=== PATIENT | female | born 1940 | race Caucasian/White ===

== ENCOUNTER 2016-06-08 14:10 | Inpatient (IN) | payer MEDICARE ==
[2016-06-08] VITALS (342 sets, daily range): BP systolic 79–105; BP diastolic 42–58; PULSE 72–74; TEMP 97–97.1; O2SAT 75–100
[~2016-06-08] VITALS: Ht 157.5 cm; Wt 71.1 kg
[2016-06-08] MEDS ORDERED: SYMMETREL100 M1 PO (14:55)
[2016-06-08] MEDS ORDERED: ASPIRIN 81M81 MG/TA2 PO (14:57)
[2016-06-08] MEDS ORDERED: VITAMIN D31000 I1 PO (14:58)
[2016-06-08] MEDS ORDERED: LIPITOR 80MG80 MG PO (14:58)
[2016-06-08] MEDS ORDERED: COLACE 100100 MG/CAP PO (14:59)
[2016-06-08] MEDS ORDERED: CYMBALTA 60MG60 MG PO (14:59)
[2016-06-08] MEDS ORDERED: LOFIBRA160 MG PO (15:00)
[2016-06-08 15:01] LABS: MEAN CELL VOLUME 102 fl (80.0-100.0); MEAN CORPUSCULAR HGB CONC 31 g/dl (33.0-37.0); MEAN PLATELET VOLUME 11.1 fl (7.4-10.4); PLATELET COUNT 374 K/mm3 (130-400); RED BLOOD COUNT 2.15 M/mm3 (4.10-5.30); REDCELL DISTRIBUTION WIDTH-CV 15.7 % (11.5-14.5); WHITE BLOOD COUNT 14.9 K/mm3 (4.8-10.8)
[2016-06-08] MEDS ORDERED: LASIX 20MG TABL20 MG PO (15:01)
[2016-06-08] MEDS ORDERED: LEVEMIR100 U/ML SQ (15:02)
[2016-06-08 15:04] LABS: HEMATOCRIT 21.9 % (37.0-47.0); HEMOGLOBIN 6.7 g/dl (12.5-16.0); MEAN CORPUSCULAR HEMOGLOBIN 31 pg (27.0-31.0)
[2016-06-08 15:05] LABS: ADD PATHOLOGY DIFF REVIEW NO; ADJUSTED CALCIUM 10.4 mg/dL (8.4-10.2); ALBUMIN 3.3 gm/dL (3.5-5.0); BILIRUBIN,TOTAL 0.7 mg/dL (0.0-1.0); CALCIUM 9.8 mg/dL (8.4-10.2); CREATININE, serum 1.68 mg/dL (0.52-1.25); POTASSIUM 4.7 mmol/L (3.4-5.0); TOTAL PROTEIN 6.5 gm/dL (6.4-8.2)
[2016-06-08] MEDS ORDERED: HUMALOG100 U/ML SQ (15:05)
[2016-06-08] MEDS ORDERED: LANTUS100 U/ML SQ (15:05)
[2016-06-08] MEDS ORDERED: ATROVENT I0.2 MG/1 M IH (15:06)
[2016-06-08] MEDS ORDERED: SYNTHROID 0.10.15 MG PO (15:07)
[2016-06-08] MEDS ORDERED: BACTROBAN NASA0.9 GM NS (15:08)
[2016-06-08] MEDS ORDERED: LOPRESSOR 225 MG/TAB PO (15:08)
[2016-06-08] MEDS ORDERED: NICODERM C14 MG/PATC TD (15:09)
[2016-06-08] MEDS ORDERED: LYRICA 75MG CAP75 MG PO (15:10)
[2016-06-08] MEDS ORDERED: FLOMAX 0.40.4 MG/CAP PO (15:10)
[2016-06-08] MEDS ORDERED: BRILINTA90 MG PO (15:11)
[2016-06-08] MEDS ORDERED: GERI-TUSSI100 MG/5 M PEG (15:12)
[2016-06-08] MEDS ORDERED: NORCO 325 MG-51 TAB PO (15:12)
[2016-06-08 15:25] LABS: TROPONIN-I 0.298 ng/mL (0.000-0.034)
[2016-06-08 15:40] LABS: BAND 1 % (0-10); NEUTROPHILS 91 % (42.0-75.2); TOTAL CELLS COUNTED 100
[2016-06-08 15:41] LABS: HYPOCHROMIA 1+; PLATELET ESTIMATE NORMAL (NORMAL); STOMATOCYTE 1+
[2016-06-09] VITALS (1163 sets, daily range): BP systolic 103–164; BP diastolic 51–98; PULSE 72–90; TEMP 97.4–99; O2SAT 72–99
[2016-06-09 00:55] LABS: HEMATOCRIT 26.4 % (37.0-47.0); HEMOGLOBIN 8.4 g/dl (12.5-16.0)
[2016-06-09 01:54] LABS: PH 5 (5-8); SQUAMOUS EPITHELIAL 0-2 /hpf; URINE APPEARANCE Clear; URINE BACTERIA None Seen /hpf; URINE BILIRUBIN Negative (NEGATIVE); URINE BLOOD Negative (NEGATIVE); URINE COLOR Straw; URINE GLUCOSE Negative (NEGATIVE); URINE KETONE Negative (NEGATIVE); URINE UROBILINOGEN Negative (NEGATIVE)
[2016-06-09 06:16] LABS: MEAN CORPUSCULAR HGB CONC 31 g/dl (33.0-37.0); PLATELET COUNT 335 K/mm3 (130-400); RED BLOOD COUNT 2.71 M/mm3 (4.10-5.30); REDCELL DISTRIBUTION WIDTH-CV 17.3 % (11.5-14.5); WHITE BLOOD COUNT 12.7 K/mm3 (4.8-10.8)
[2016-06-09 06:26] LABS: BILIRUBIN,TOTAL 0.7 mg/dL (0.0-1.0); CALCIUM 9.2 mg/dL (8.4-10.2); CREATININE, serum 1.7 mg/dL (0.52-1.25); POTASSIUM 4.1 mmol/L (3.4-5.0); TOTAL PROTEIN 6.1 gm/dL (6.4-8.2)
[2016-06-09 06:46] LABS: HEMOGLOBIN 8.1 g/dl (12.5-16.0); MEAN CELL VOLUME 96 fl (80.0-100.0); MEAN CORPUSCULAR HEMOGLOBIN 30 pg (27.0-31.0)
[2016-06-09 06:47] LABS: ADD PATHOLOGY DIFF REVIEW NO; TROPONIN-I 0.307 ng/mL (0.000-0.034)
[2016-06-09 08:55] LABS: BAND 3 % (0-10); EOSINOPHIL 4 % (0-4); NEUTROPHILS 75 % (42.0-75.2); TOTAL CELLS COUNTED 100
[2016-06-09 08:56] LABS: ANISOCYTOSIS 1+; HYPOCHROMIA 1+; PLATELET ESTIMATE INCREASED (NORMAL)
[2016-06-09 19:57] LABS: CALCIUM 9.3 mg/dL (8.4-10.2); CREATININE, serum 1.47 mg/dL (0.52-1.25); MAGNESIUM 1.9 mg/dL (1.6-2.3); POTASSIUM 4.2 mmol/L (3.4-5.0)
[2016-06-10] VITALS (1242 sets, daily range): BP systolic 129–153; BP diastolic 52–64; PULSE 67–90; TEMP 98.1–99; O2SAT 82–100
[2016-06-10 06:46] LABS: BASO # 0.2 (0.0-0.2); EOS # 0.5 (0.0-0.7); EOS % 3.2 % (0-4.0); GRAN # 12.7 (1.4-6.5); GRAN % 74.5 % (42.2-75.2); LYMPH # 0.8 (1.2-3.4); LYMPH % 4.8 % (20.0-51.0); MEAN CELL VOLUME 95 fl (80.0-100.0); MEAN CORPUSCULAR HGB CONC 32 g/dl (33.0-37.0); MEAN PLATELET VOLUME 11.1 fl (7.4-10.4); MONO # 2.6 (0.1-0.6); MONO % 15.1 % (1.7-9.3); PLATELET COUNT 362 K/mm3 (130-400); RED BLOOD COUNT 3.69 M/mm3 (4.10-5.30); REDCELL DISTRIBUTION WIDTH-CV 17.2 % (11.5-14.5)
[2016-06-10 06:51] LABS: ADJUSTED CALCIUM 10.2 mg/dL (8.4-10.2); ALBUMIN 3.3 gm/dL (3.5-5.0); BILIRUBIN,TOTAL 1.2 mg/dL (0.0-1.0); CALCIUM 9.6 mg/dL (8.4-10.2); CREATININE, serum 1.58 mg/dL (0.52-1.25); MAGNESIUM 2.1 mg/dL (1.6-2.3); POTASSIUM 4.1 mmol/L (3.4-5.0); TOTAL PROTEIN 6.7 gm/dL (6.4-8.2)
[2016-06-10 07:02] LABS: HEMOGLOBIN 11.2 g/dl (12.5-16.0); MEAN CORPUSCULAR HEMOGLOBIN 30 pg (27.0-31.0)
[2016-06-10 09:35] LABS: ARTERIAL BLD GAS O2 SATURATION 91.2 % (92-100); ARTERIAL BLD GAS TCO2 CT 27.4; ARTERIAL BLOOD GAS BASE EXCESS -0.8 (-2-2); ARTERIAL BLOOD GAS HCO3 25.8 meq/L (22-26); ARTERIAL BLOOD GAS PHT 7.32 C (7.35-7.45); ARTERIAL BLOOD GAS PO2 67.5 mmHg (80-100); ARTERIAL BLOOD GAS PO2T 67.5 (80-100); ARTERIAL BLOOD GAS pH 7.32 (7.35-7.45); ATS? YES
[2016-06-10 10:20] LABS: PH 5 (5-8); URINE APPEARANCE Hazy; URINE BACTERIA None Seen /hpf; URINE BILIRUBIN Negative (NEGATIVE); URINE BLOOD Negative (NEGATIVE); URINE COLOR Yellow; URINE GLUCOSE 1+ (NEGATIVE); URINE KETONE Negative (NEGATIVE); URINE UROBILINOGEN Negative (NEGATIVE); URINE WBC 20-50 /hpf
[2016-06-10 15:53] LABS: PHOSPHOROUS 5.3 mg/dL (2.5-4.5)
[2016-06-11] VITALS (1196 sets, daily range): BP systolic 116–165; BP diastolic 41–74; PULSE 76–88; TEMP 98–98.9; O2SAT 76–99
[2016-06-11 05:40] LABS: BASO # 0.1 (0.0-0.2); BASO % 0.8 % (0.0-2.0); EOS # 0.6 (0.0-0.7); EOS % 4.9 % (0-4.0); GRAN # 9.5 (1.4-6.5); GRAN % 72.9 % (42.2-75.2); LYMPH # 0.7 (1.2-3.4); LYMPH % 5.3 % (20.0-51.0); MEAN CELL VOLUME 95 fl (80.0-100.0); MEAN CORPUSCULAR HGB CONC 32 g/dl (33.0-37.0); PLATELET COUNT 307 K/mm3 (130-400); RED BLOOD COUNT 3.61 M/mm3 (4.10-5.30); REDCELL DISTRIBUTION WIDTH-CV 16.6 % (11.5-14.5)
[2016-06-11 05:45] LABS: HEMATOCRIT 34.1 % (37.0-47.0); HEMOGLOBIN 10.8 g/dl (12.5-16.0); MEAN CORPUSCULAR HEMOGLOBIN 30 pg (27.0-31.0)
[2016-06-11 05:57] LABS: CALCIUM 9.3 mg/dL (8.4-10.2); CREATININE, serum 1.35 mg/dL (0.52-1.25); MAGNESIUM 2.2 mg/dL (1.6-2.3); POTASSIUM 4.2 mmol/L (3.4-5.0)
[2016-06-11 11:03] LABS: ARTERIAL BLD GAS O2 SATURATION 92.1 % (92-100); ARTERIAL BLD GAS TCO2 CT 26.8; ARTERIAL BLOOD GAS BASE EXCESS 0.3 (-2-2); ARTERIAL BLOOD GAS HCO3 25.5 meq/L (22-26); ARTERIAL BLOOD GAS PHT 7.39 C (7.35-7.45); ARTERIAL BLOOD GAS PO2 67.1 mmHg (80-100); ARTERIAL BLOOD GAS PO2T 67.1 (80-100); ARTERIAL BLOOD GAS pH 7.39 (7.35-7.45); OXYHEMOGLOBIN 90.7 %
[2016-06-11 11:04] LABS: ATS? YES
[2016-06-12] VITALS (898 sets, daily range): BP systolic 129–179; BP diastolic 52–76; PULSE 72–120; TEMP 97.9–98.6; O2SAT 84–97
[2016-06-12 05:30] LABS: BASO # 0.1 (0.0-0.2); BASO % 0.9 % (0.0-2.0); EOS # 0.5 (0.0-0.7); EOS % 4.8 % (0-4.0); GRAN # 7.2 (1.4-6.5); GRAN % 73.2 % (42.2-75.2); LYMPH # 0.5 (1.2-3.4); LYMPH % 4.7 % (20.0-51.0); MEAN CELL VOLUME 97 fl (80.0-100.0); MEAN CORPUSCULAR HGB CONC 30 g/dl (33.0-37.0); MEAN PLATELET VOLUME 10.4 fl (7.4-10.4); MONO # 1.6 (0.1-0.6); MONO % 15.8 % (1.7-9.3); PLATELET COUNT 301 K/mm3 (130-400); RED BLOOD COUNT 3.35 M/mm3 (4.10-5.30); REDCELL DISTRIBUTION WIDTH-CV 16.3 % (11.5-14.5); WHITE BLOOD COUNT 9.9 K/mm3 (4.8-10.8)
[2016-06-12 05:32] LABS: HEMATOCRIT 32.4 % (37.0-47.0); HEMOGLOBIN 9.8 g/dl (12.5-16.0); MEAN CORPUSCULAR HEMOGLOBIN 29 pg (27.0-31.0)
[2016-06-12 05:42] LABS: ADJUSTED CALCIUM 10.3 mg/dL (8.4-10.2); ALBUMIN 2.8 gm/dL (3.5-5.0); BILIRUBIN,TOTAL 0.6 mg/dL (0.0-1.0); CALCIUM 9.3 mg/dL (8.4-10.2); CREATININE, serum 1.18 mg/dL (0.52-1.25); MAGNESIUM 2.3 mg/dL (1.6-2.3); POTASSIUM 4.4 mmol/L (3.4-5.0)
[2016-06-13] VITALS (1253 sets, daily range): BP systolic 116–154; BP diastolic 50–76; PULSE 64–90; TEMP 97.7–100.7; O2SAT 83–100
[2016-06-13 06:21] LABS: ADD PATHOLOGY DIFF REVIEW NO
[2016-06-13 06:23] LABS: HEMATOCRIT 31.5 % (37.0-47.0); HEMOGLOBIN 9.8 g/dl (12.5-16.0); MEAN CELL VOLUME 98 fl (80.0-100.0); MEAN CORPUSCULAR HEMOGLOBIN 30 pg (27.0-31.0); MEAN CORPUSCULAR HGB CONC 31 g/dl (33.0-37.0); PLATELET COUNT 295 K/mm3 (130-400); RED BLOOD COUNT 3.23 M/mm3 (4.10-5.30); WHITE BLOOD COUNT 8.9 K/mm3 (4.8-10.8)
[2016-06-13 06:30] LABS: ANISOCYTOSIS 1+; BAND 2 % (0-10); EOSINOPHIL 10 % (0-4); NEUTROPHILS 68 % (42.0-75.2); PLATELET ESTIMATE NORMAL (NORMAL); TOTAL CELLS COUNTED 100
[2016-06-13 06:33] LABS: CALCIUM 9.1 mg/dL (8.4-10.2); CREATININE, serum 1.3 mg/dL (0.52-1.25); MAGNESIUM 2.5 mg/dL (1.6-2.3); POTASSIUM 4.4 mmol/L (3.4-5.0)
[2016-06-13 10:20] LABS: ARTERIAL BLD GAS O2 SATURATION 84.9 % (92-100); ARTERIAL BLD GAS TCO2 CT 25.6; ARTERIAL BLOOD GAS BASE EXCESS -1.6 (-2-2); ARTERIAL BLOOD GAS HCO3 24.2 meq/L (22-26); ARTERIAL BLOOD GAS PO2 55.2 mmHg (80-100); ARTERIAL BLOOD GAS pH 7.34 (7.35-7.45); OXYHEMOGLOBIN 84.2 %
[2016-06-13 10:21] LABS: ALLEN TEST NO; ATS? YES
[2016-06-14] VITALS (1188 sets, daily range): BP systolic 147–187; BP diastolic 64–120; PULSE 81–93; TEMP 97.9–98.5; O2SAT 56–100
[2016-06-14 05:37] LABS: ADD PATHOLOGY DIFF REVIEW NO
[2016-06-14 05:42] LABS: MEAN CELL VOLUME 98 fl (80.0-100.0); MEAN CORPUSCULAR HEMOGLOBIN 29 pg (27.0-31.0); MEAN CORPUSCULAR HGB CONC 30 g/dl (33.0-37.0); MEAN PLATELET VOLUME 11.2 fl (7.4-10.4); PLATELET COUNT 254 K/mm3 (130-400); RED BLOOD COUNT 3.06 M/mm3 (4.10-5.30); WHITE BLOOD COUNT 7.2 K/mm3 (4.8-10.8)
[2016-06-14 05:48] LABS: INR 1.3 (0.8-3.0); PROTHROMBIN TIME 14.7 SECONDS (9.7-12.8)
[2016-06-14 05:54] LABS: ADJUSTED CALCIUM 9.9 mg/dL (8.4-10.2); ALBUMIN 2.6 gm/dL (3.5-5.0); BILIRUBIN,TOTAL 0.5 mg/dL (0.0-1.0); CALCIUM 8.8 mg/dL (8.4-10.2); CREATININE, serum 1.36 mg/dL (0.52-1.25); MAGNESIUM 2.4 mg/dL (1.6-2.3); POTASSIUM 4.2 mmol/L (3.4-5.0); TOTAL PROTEIN 5.8 gm/dL (6.4-8.2)
[2016-06-14 05:57] LABS: NEUTROPHILS 65 % (42.0-75.2)
[2016-06-14 05:58] LABS: ANISOCYTOSIS 1+; BAND 6 % (0-10); BASOPHIL 1 % (0-2); EOSINOPHIL 10 % (0-4); MYELOCYTE 1 % (0-0); PLATELET ESTIMATE NORMAL (NORMAL); TOTAL CELLS COUNTED 100
[2016-06-15] VITALS (542 sets, daily range): BP systolic 128–153; BP diastolic 50–89; PULSE 84–85; TEMP 97.9–99.8; O2SAT 85–100
[2016-06-15 05:30] LABS: BASO # 0.1 (0.0-0.2); BASO % 1.4 % (0.0-2.0); EOS # 0.4 (0.0-0.7); EOS % 4.6 % (0-4.0); GRAN # 6.2 (1.4-6.5); GRAN % 67.2 % (42.2-75.2); HEMATOCRIT 33.4 % (37.0-47.0); HEMOGLOBIN 10.1 g/dl (12.5-16.0); LYMPH # 0.9 (1.2-3.4); LYMPH % 9.6 % (20.0-51.0); MEAN CELL VOLUME 97 fl (80.0-100.0); MEAN CORPUSCULAR HEMOGLOBIN 29 pg (27.0-31.0); MEAN CORPUSCULAR HGB CONC 30 g/dl (33.0-37.0); MONO # 1.5 (0.1-0.6); MONO % 16.1 % (1.7-9.3); PLATELET COUNT 274 K/mm3 (130-400); RED BLOOD COUNT 3.45 M/mm3 (4.10-5.30); REDCELL DISTRIBUTION WIDTH-CV 15.9 % (11.5-14.5); WHITE BLOOD COUNT 9.3 K/mm3 (4.8-10.8)
[2016-06-15 05:41] LABS: CREATININE, serum 1.25 mg/dL (0.52-1.25); POTASSIUM 3.8 mmol/L (3.4-5.0)
== END 2016-06-16 21:24 | disposition expired | DRG 377 ==
LOC: COL.ER 14:10 → ICU 15:25 → MEDICAL 06-15 12:29
PROVIDERS: Family Medicine; Internal Medicine; Internal Medicine Cardiovascular Disease; Internal Medicine Gastroenterology; Internal Medicine Pulmonary Disease
PROC: 0DB68ZX Excision of Stomach, Via Natural or Artificial Opening Endoscopic, Diagnostic (ICD-10-PCS; principal; 2016-06-09 16:30)
PROC: 0DH63UZ Insertion of Feeding Device into Stomach, Percutaneous Approach (ICD-10-PCS; 2016-06-12)
DX: K25.4 Chronic or unspecified gastric ulcer with hemorrhage (principal); I21.4 Non-ST elevation (NSTEMI) myocardial infarction; I50.23 Acute on chronic systolic (congestive) heart failure; Z51.5 Encounter for palliative care; Z66 Do not resuscitate; I69.354 Hemiplegia and hemiparesis following cerebral infarction affecting left non-dominant side; D62 Acute posthemorrhagic anemia; N39.0 Urinary tract infection, site not specified; N17.9 Acute kidney failure, unspecified; G93.1 Anoxic brain damage, not elsewhere classified; K22.2 Esophageal obstruction; I11.0 Hypertensive heart disease with heart failure; I25.10 Atherosclerotic heart disease of native coronary artery without angina pectoris; B95.62 Methicillin resistant Staphylococcus aureus infection as the cause of diseases classified elsewhere; J44.9 Chronic obstructive pulmonary disease, unspecified; I69.391 Dysphagia following cerebral infarction; R13.10 Dysphagia, unspecified; E11.9 Type 2 diabetes mellitus without complications; Z79.4 Long term (current) use of insulin; R57.0 Cardiogenic shock; R13.12 Dysphagia, oropharyngeal phase; Z87.891 Personal history of nicotine dependence
CPT/HCPCS: 99223-AI; 99233-AI; A4315; C1751; J0133; J0360; J0696; J1160; J1630; J1644; J1815; J1940; J2060; J2270; J2405; J2704; J3010; J3370; J7030; J7050; P9016; Q9967